=== PATIENT | male | born 1950 ===

== ENCOUNTER 2017-08-29 21:14 | Inpatient (IN) | payer OTHER ==
[~2017-08-29] VITALS: Ht 167.6 cm; Wt 65.3 kg
[2017-08-29] MEDS ORDERED: CLON0.5T4 PO (21:22)
[2017-08-29] MEDS ORDERED: HALO2TAB PO (21:22)
[2017-08-29] MEDS ORDERED: DIVA125T2 PO (21:22)
[2017-08-29] MEDS ORDERED: TRAZ-144 PO (21:22)
[2017-08-29 22:00] VITALS: BP 139/90
--- NOTE | 2017-08-29 22:04 | NUR ---
Pt. admitted to [facility]HU , under care of Dr. MEHTA Belongs List completed
[2017-08-29] MEDS ORDERED: MAG HYDROX/AL HYDROX/SIMETH 30 ML LIQUID UDC PO PRN (23:00)
[2017-08-29] MEDS ORDERED: MAGNESIUM HYDROXIDE 30 ML LIQUID UDC PO PRN (23:00)
[2017-08-29] MEDS: LORAZEPAM 0.5 MG TABLET PO PRN (23:23)
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
[2017-08-30 07:30] VITALS: BP 112/68
[2017-08-30] MEDS: LORAZEPAM 0.5 MG TABLET PO PRN (08:02)
[2017-08-30] MEDS: ACETAMINOPHEN 325 MG TABLET PO PRN ×3 (08:02→22:59)
[2017-08-30] MEDS: NICOTINE 14 MG/24HR PATCH TD SCH (08:02)
[2017-08-30] MEDS ORDERED: BENZTROPINE MESYLATE 1 MG TABLET PO PRN (10:00)
[2017-08-30] MEDS ORDERED: HALOPERIDOL 0.5 MG TABLET PO PRN (10:00)
[2017-08-30] MEDS ORDERED: DIVALPROEX 125 MG TABLET.DR PO SCH ×2 (10:00→21:00)
[2017-08-30] MEDS: CLONAZEPAM 0.5 MG TABLET PO SCH ×2 (10:43→16:49)
[2017-08-30] MEDS: HALOPERIDOL 2 MG TABLET PO SCH ×2 (10:43→16:49)
[2017-08-30] MEDS ORDERED: ALBUTEROL SULFATE 2.5 MG/ 0.5 ML NEBU NEB PRN (10:45)
[2017-08-30] MEDS ORDERED: HALOPERIDOL 2 MG TABLET PO PRN (10:45)
[2017-08-30] MEDS ORDERED: HALOPERIDOL LACTATE 10 MG/5 ML ORAL SOLUTION UDC PO PRN (10:45)
--- NOTE | 2017-08-30 14:03 | NUR ---
GPS: Nursing Notes: Destructive Behavior to Others: Patient is awake and responding to his name, episodes of pacing on the unit, gets easily irritable when redirected, suspicious, guarded, paranoid behavior, internally preoccupied, believes that he is here because of his family's fault, very demanding at times, loud and angry affect, believes that he is leaving today, unkempt appearance, unable to formulate a viable plan for self care, continue with treatment plan.
[2017-08-30 16:14] VITALS: BP 126/80
[2017-08-30] MEDS: BENZTROPINE MESYLATE 0.5 MG TABLET PO SCH (16:49)
[2017-08-30 19:53] VITALS: BP 112/75
[2017-08-30] MEDS: TEMAZEPAM 7.5 MG CAPSULE PO PRN (20:37)
[2017-08-30] MEDS ORDERED: DIVALPROEX 250 MG TABLET.DR PO SCH (21:00)
[2017-08-31] MEDS: LORAZEPAM 0.5 MG TABLET PO PRN ×4 (00:10→21:02)
[2017-08-31] MEDS: TEMAZEPAM 7.5 MG CAPSULE PO PRN ×2 (00:10→22:29)
[2017-08-31 07:30] VITALS: BP 112/78
[2017-08-31] MEDS: NICOTINE 14 MG/24HR PATCH TD SCH (08:14)
[2017-08-31] MEDS: BENZTROPINE MESYLATE 0.5 MG TABLET PO SCH ×2 (08:15→16:18)
[2017-08-31] MEDS: HALOPERIDOL 2 MG TABLET PO SCH (08:15)
[2017-08-31] MEDS: CLONAZEPAM 0.5 MG TABLET PO SCH ×2 (08:15→16:17)
[2017-08-31] MEDS: DIVALPROEX 250 MG TABLET.DR PO SCH ×2 (12:28→21:02)
[2017-08-31 15:56] VITALS: BP 104/65
[2017-08-31] MEDS: ACETAMINOPHEN 325 MG TABLET PO PRN (16:17)
[2017-08-31] MEDS: HALOPERIDOL 5 MG TABLET PO SCH (16:18)
[2017-08-31 20:28] VITALS: BP 101/59
--- NOTE | 2017-08-31 21:03 | NUR ---
INITIAL BP LOW, HS MEDS HELD UNTIL BP RE-CHECK, BP NOW ELEVATED ENOUGH TO ADMINISTER MEDICATIONS.
[2017-09-01] MEDS: LORAZEPAM 0.5 MG TABLET PO PRN ×3 (02:12→17:05)
[2017-09-01 05:50] LABS: *BILIRUBIN,URIN NEGATIVE (NEGATIVE); *BLOOD, URINE NEGATIVE (NEGATIVE); *CLARITY,URINE CLEAR (CLEAR); *COLOR,URINE LIGHT YELLOW (YELLOW); *KETONES,URINE NEGATIVE (NEGATIVE); *PROTEIN,URINE NEGATIVE (NEGATIVE); *UROBILINOGEN,URINE 0.2 E.U./dl (NORMAL); LEUKOCYTE ESTERASE ,URINE NEGATIVE (NEGATIVE); NITRITE, URINE NEGATIVE (NEGATIVE); PH,URINE 7.5 (5.0-8.0); UGLUCOSE NEGATIVE (NEGATIVE)
[2017-09-01 05:58] LABS: BACTERIA,URINE NONE SEEN /HPF (NONE SEEN); RBC,URINE NONE SEEN /HPF (0-3); SQUAMOUS EPITHELIAL CELL,UR FEW /HPF (NONE SEEN); WBC,URINE NONE SEEN /HPF (0-3)
[2017-09-01 07:21] LABS: POTASSIUM 4.4 mmol/L (3.5-5.1)
[2017-09-01 07:24] LABS: BASOPHILS % (AUTO) 0.9 % (0.0-2.0); EOSINOPHILS # (AUTO) 0.5 K/uL (0.0-0.7); EOSINOPHILS % (AUTO) 8.4 % (0.0-7.0); HEMATOCRIT 49.1 % (36.7-47.1); HEMOGLOBIN 16.4 g/dL (12.5-16.3); LYMPHOCYTES # (AUTO) 1.7 K/uL (20.0-40.0); LYMPHOCYTES % (AUTO) 29.4 % (20.5-51.5); MEAN CORPUSCULAR HEMOGLOBIN 31.6 uug (23.8-33.4); MEAN CORPUSCULAR HGB CONC 33 g/dL (32.5-36.3); MEAN CORPUSCULAR VOLUME 94.8 fL (73.0-96.2); MONOCYTES # (AUTO) 0.9 K/uL (2.0-10.0); MONOCYTES % (AUTO) 16.3 % (0.0-11.0); NEUTROPHILS # (AUTO) 2.5 K/uL (1.8-8.9); PLATELET COUNT (AUTO) 199 K/uL (152-348); RED BLOOD CELL COUNT(AUTO) 5.17 MIL/uL (4.06-5.63); WHITE BLOOD COUNT (AUTO) 5.7 K/uL (3.6-10.2)
[2017-09-01 07:30] VITALS: BP 100/72
[2017-09-01 07:32] LABS: NEUTROPHILS % (MANUAL) 0 % (42-75)
[2017-09-01] MEDS: NICOTINE 14 MG/24HR PATCH TD SCH (08:15)
[2017-09-01] MEDS: HALOPERIDOL 5 MG TABLET PO SCH ×3 (08:15→16:19)
[2017-09-01] MEDS: CLONAZEPAM 0.5 MG TABLET PO SCH ×2 (08:15→16:19)
[2017-09-01] MEDS: DIVALPROEX 250 MG TABLET.DR PO SCH ×3 (08:16→20:49)
[2017-09-01] MEDS: BENZTROPINE MESYLATE 0.5 MG TABLET PO SCH ×2 (08:16→16:20)
[2017-09-01] MEDS: ACETAMINOPHEN 325 MG TABLET PO PRN ×2 (08:33→22:10)
--- NOTE | 2017-09-01 12:18 | NUR ---
Initial DC Plan: Patient currently lives at home with his mother [[place] [address]; [phone]]. LLOYD spoke with patient's brother Sanju [[phone]] who stated he will bring patient home upon discharge. LLOYD will follow up with MD, patient, and patient's family to discuss most appropriate discharge plans. SW will form a safe and proper discharge.
--- NOTE | 2017-09-01 13:09 | NUR ---
Firearms Reporting: LLOYD submitted Mental Health Report to [employer] on 09/01.
[2017-09-01 15:18] VITALS: BP 112/83
[2017-09-01 20:28] VITALS: BP 103/64
--- NOTE | 2017-09-01 20:45 | NUR ---
RECEIVED PATIENT IN HIS ROOM IN BED. HE WAS NOTED A/O X 2 (PERSON AND PLACE). ABLE TO WALK WITH STEADY GAIT. AND ABLE TO MAKE HIS NEEDS KNOW. ABLE TO COMPLY WITH [facility] MEDICATION REGIMENT. PT NOTED FORGETFUL, DISORGANIZED, DELUSIONAL, SEXUALLY PREOCCUPIED, HE STATED TO THE NURSES. 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 POOR INSIGHT, POOR JUDGEMENT. DENIES SI/HI. NO AGGRESSIVE BX NOTED AT THIS TIME. SAFETY EMPHASIS. PT WAS ASKED TO USED HIS FWW FOR AMBULATION. WILL CONTINUE TO MONITOR.
--- NOTE | 2017-09-01 21:38 | NUR ---
PT NOTED PACING THE HALLWAY, VERBAL REDIRECTION GIVEN. AND SLEEPING PILL WAS OFFERED, HOWEVER, HE REFUSED AT THIS TIME. WILL CONTINUE TO MONITOR.
[2017-09-01] MEDS: TEMAZEPAM 7.5 MG CAPSULE PO PRN (22:21)
[2017-09-02] MEDS: LORAZEPAM 0.5 MG TABLET PO PRN (03:19)
[2017-09-02] MEDS: ACETAMINOPHEN 325 MG TABLET PO PRN (06:44)
--- NOTE | 2017-09-02 06:48 | NUR ---
PT SLEPT FOR APPROX 5.30 HRS THROUGH THE NIGHT. REQUESTED A SHOWER. HE ALSO REPORTED MODERATE NECK PAIN. TYLENOL 650MG PO PRN WAS GIVEN. WILL CONTINUE TO MONITOR.
[2017-09-02 08:00] VITALS: BP 132/84
[2017-09-02] MEDS: CLONAZEPAM 0.5 MG TABLET PO SCH ×2 (08:07→16:03)
[2017-09-02] MEDS: BENZTROPINE MESYLATE 0.5 MG TABLET PO SCH ×2 (08:07→16:03)
[2017-09-02] MEDS: HALOPERIDOL 5 MG TABLET PO SCH ×3 (08:07→20:40)
[2017-09-02] MEDS: NICOTINE 14 MG/24HR PATCH TD SCH (08:07)
[2017-09-02] MEDS: DIVALPROEX 250 MG TABLET.DR PO SCH ×2 (08:07→12:04)
--- NOTE | 2017-09-02 09:54 | NUR ---
UR Note: SWS provided patient clinicals over the phone. AUTH# [id number] obtained from Sabrina Iyer [[phone] FAX [phone]]. Review due 09/04/17. SW will follow up with CM.
[2017-09-02 16:00] VITALS: BP 121/69
--- NOTE | 2017-09-02 19:45 | NUR ---
PATIENT IN HIS ROOM CALM, COOPERATIVE WITH CARE, CONT TO MONITOR.
[2017-09-02 20:00] VITALS: BP 106/75
[2017-09-02] MEDS: DIVALPROEX 500 MG TABLET.DR PO SCH (20:40)
[2017-09-02] MEDS: TEMAZEPAM 7.5 MG CAPSULE PO PRN (22:28)
--- NOTE | 2017-09-02 22:28 | NUR ---
PATIENT COMPLAIN OF INSOMNIA, GIVEN RESTORIL ORDERED. CONT TO MONITOR.
[2017-09-03] MEDS: LORAZEPAM 0.5 MG TABLET PO PRN ×2 (03:33→22:11)
--- NOTE | 2017-09-03 03:42 | NUR ---
PATIENT PACING, AND HAVING ANXIETY, WANTED MEDICATION, GIVEN ATIVAN ORDERED, PATIENT HAD BM, MOM EFFECTIVE. CONT TO MONITOR.
--- NOTE | 2017-09-03 04:56 | NUR ---
PATIENT SLEPT FOR 5 HOURS, RESTORIL HAS NO ADVERSE REACTION NOTED, AWAKE IN HIS ROOM, CONT TO MONITOR.
[2017-09-03 07:30] VITALS: BP 120/83
[2017-09-03] MEDS: CLONAZEPAM 0.5 MG TABLET PO SCH ×2 (08:49→16:16)
[2017-09-03] MEDS: NICOTINE 14 MG/24HR PATCH TD SCH (08:49)
[2017-09-03] MEDS: DIVALPROEX 250 MG TABLET.DR PO SCH ×2 (08:49→13:17)
[2017-09-03] MEDS: HALOPERIDOL 5 MG TABLET PO SCH ×3 (08:49→20:21)
[2017-09-03] MEDS: BENZTROPINE MESYLATE 0.5 MG TABLET PO SCH ×2 (08:49→16:16)
[2017-09-03] MEDS: ACETAMINOPHEN 325 MG TABLET PO PRN (08:55)
--- NOTE | 2017-09-03 10:39 | NUR ---
Received patient in dayroom spent time watching tv, paces hallways, ate 100% breakfast, pleasant on approach, interacts with selected peers and staff. Medication compliant and cooperative, c/o neck pain at 8/10, tylenol 650mg PO was given at 0855. Will continue to monitor for safety and needs.
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
[2017-09-03 16:28] VITALS: BP 100/74
[2017-09-03 20:06] VITALS: BP 115/73
[2017-09-03] MEDS: DIVALPROEX 500 MG TABLET.DR PO SCH (20:21)
--- NOTE | 2017-09-03 22:00 | NUR ---
received to care, pacing about the unit, anxious, but pleasant upon approach. compliant with medications and staff direction. as of 2199, he remains awake, in his room. remaind anxious. will continue to monitor closely.
--- NOTE | 2017-09-03 22:11 | NUR ---
REMAINS AGITATED. ACCUSED STAFF OF STEALING HIS "BIBLE" DIFFICULT TO REDIRECT. PRN ATIVAN WAS GIVEN AT THIS TIME.
--- NOTE | 2017-09-03 23:07 | NUR ---
remains agitated, but appears calmer, now. PRN haldol was given at this time. will continue to monitor closely.
[2017-09-04] MEDS: TEMAZEPAM 7.5 MG CAPSULE PO PRN ×2 (00:09→22:49)
--- NOTE | 2017-09-04 00:09 | NUR ---
appears calm, now. PRN restoril, given at his request, for insomnia. will continue to monitor closely.
--- NOTE | 2017-09-04 00:30 | NUR ---
appears to be asleep. no distress noted.
--- NOTE | 2017-09-04 06:42 | NUR ---
PATIENT SLEPT FOR 5;30 AFTER HIS MEDS HAD BEEN GIVEN.UP THIS MORNING AND HELPED WITH GROOMING.
[2017-09-04 07:30] VITALS: BP 99/71
[2017-09-04] MEDS: CLONAZEPAM 0.5 MG TABLET PO SCH ×2 (08:09→17:16)
[2017-09-04] MEDS: DIVALPROEX 250 MG TABLET.DR PO SCH ×2 (08:09→12:41)
[2017-09-04] MEDS: BENZTROPINE MESYLATE 0.5 MG TABLET PO SCH ×2 (08:09→17:16)
[2017-09-04] MEDS: HALOPERIDOL 5 MG TABLET PO SCH ×3 (08:09→21:45)
[2017-09-04] MEDS: NICOTINE 14 MG/24HR PATCH TD SCH (08:15)
[2017-09-04] MEDS: ACETAMINOPHEN 325 MG TABLET PO PRN ×2 (09:34→18:14)
--- NOTE | 2017-09-04 10:00 | NUR ---
Gps/Fundraising Director- Attends and participates in his group therapy, complaining of joint pain r/t to arthritis per patient, ambulates around with front wheel walker ,interacting with his selected peers.
[2017-09-04 19:57] VITALS: BP 94/51
[2017-09-04] MEDS: LORAZEPAM 0.5 MG TABLET PO PRN (20:20)
[2017-09-04] MEDS: DIVALPROEX 500 MG TABLET.DR PO SCH (21:45)
--- NOTE | 2017-09-04 22:00 | NUR ---
received to care, highly visible on unit, compliant with medications, pleasant upon approach. appeared slightly anxious, so he was given PRN ativan, at 2019. as of 2199, he remains awake, but much calmer. currently in bed. no distress noted. will continue to monitor closely.
--- NOTE | 2017-09-04 22:49 | NUR ---
remains awake, in bed. PRN restoril was given at this time, at his request. no distress noted. will continue to monitor closely.
--- NOTE | 2017-09-04 23:30 | NUR ---
appears to be asleep. no distress noted.
[2017-09-05] MEDS: ACETAMINOPHEN 325 MG TABLET PO PRN ×2 (04:57→16:31)
[2017-09-05 07:17] LABS: BASOPHILS % (AUTO) 0.8 % (0.0-2.0); EOSINOPHILS # (AUTO) 0.4 K/uL (0.0-0.7); EOSINOPHILS % (AUTO) 7.7 % (0.0-7.0); HEMATOCRIT 44.3 % (36.7-47.1); HEMOGLOBIN 14.9 g/dL (12.5-16.3); LYMPHOCYTES # (AUTO) 1.5 K/uL (20.0-40.0); LYMPHOCYTES % (AUTO) 32.7 % (20.5-51.5); MEAN CORPUSCULAR HEMOGLOBIN 31.9 uug (23.8-33.4); MEAN CORPUSCULAR HGB CONC 34 g/dL (32.5-36.3); MEAN CORPUSCULAR VOLUME 95.3 fL (73.0-96.2); MONOCYTES # (AUTO) 0.8 K/uL (2.0-10.0); NEUTROPHILS # (AUTO) 1.9 K/uL (1.8-8.9); NEUTROPHILS % (AUTO) 41.8 % (38.5-71.5); PLATELET COUNT (AUTO) 177 K/uL (152-348); RED BLOOD CELL COUNT(AUTO) 4.65 MIL/uL (4.06-5.63); WHITE BLOOD COUNT (AUTO) 4.6 K/uL (3.6-10.2)
[2017-09-05 07:31] LABS: BILIRUBIN,TOTAL 0.6 mg/dL (0.2-1.0); MAGNESIUM 1.9 mg/dL (1.8-2.4); PHOSPHOROUS 3.6 mg/dL (2.5-4.9); POTASSIUM 4.7 mmol/L (3.5-5.1)
[2017-09-05 07:42] VITALS: BP 106/71
[2017-09-05] MEDS: CLONAZEPAM 0.5 MG TABLET PO SCH ×2 (08:51→16:32)
[2017-09-05] MEDS: HALOPERIDOL 5 MG TABLET PO SCH ×3 (08:51→20:26)
[2017-09-05] MEDS: NICOTINE 14 MG/24HR PATCH TD SCH (08:51)
[2017-09-05] MEDS: BENZTROPINE MESYLATE 0.5 MG TABLET PO SCH ×2 (08:51→16:32)
[2017-09-05] MEDS: DIVALPROEX 250 MG TABLET.DR PO SCH ×2 (08:51→13:21)
[2017-09-05 08:59] LABS: BAND % (MANUAL) 2 % (0-10); EOSINOPHILS % (MANUAL) 8 % (0-8); LYMPHOCYTES % (MANUAL) 34 % (20-40); MONOCYTES % (MANUAL) 15 % (2-10); NEUTROPHILS % (MANUAL) 41 % (42-75)
[2017-09-05] MEDS ORDERED: HALOPERIDOL DECANOATE 50 MG/1 ML AMPUL IM ONE (12:15)
[2017-09-05 16:18] VITALS: BP 113/73
[2017-09-05 19:43] VITALS: BP 105/73
[2017-09-05] MEDS: DIVALPROEX 500 MG TABLET.DR PO SCH (20:27)
--- NOTE | 2017-09-05 20:30 | NUR ---
RECEIVED PATIENT IN THE HALLWAY, HE WAS NOTED A/O X 2. ABLE TO AMBULATE WITH STEADY GAIT AND ABLE TO MAKE HIS NEEDS KNOWN. HE REMAINS MEDICATION COMPLIANT AT THIS TIME. PT NOTED NEEDY, ANXIOUS MOOD, BLUNTED AFFECTED, FAIR INSIGHT AND POOR JUDGMENT. NO AGGRESSIVE/COMBATIVE BX NOTED AT THIS TIME, DENIES SI/HI. NO A/H OR V/A NOTED AT THIS TIME. SAFETY EMPHASIS. WILL CONTINUE TO MONITOR CLOSELY.
[2017-09-06] MEDS: ACETAMINOPHEN 325 MG TABLET PO PRN ×2 (00:25→13:01)
--- NOTE | 2017-09-06 00:35 | NUR ---
PATIENT REQUESTED TYLENOL 650MG PO PRN FOR NECK PAIN 5/10 IN THE PAIN INTENSITY SCALE. WILL CONTINUE TO MONITOR.
--- NOTE | 2017-09-06 07:21 | NUR ---
PATIENT SLEPT FOR APPROX 8.30HRS THROUGH THE NIGHT. DENIES PAIN OR DISCOMFORT. WILL CONTINUE TO MONITOR.
[2017-09-06 07:30] VITALS: BP 110/65
[2017-09-06] MEDS: HALOPERIDOL 5 MG TABLET PO SCH ×3 (08:22→20:08)
[2017-09-06] MEDS: BENZTROPINE MESYLATE 0.5 MG TABLET PO SCH ×2 (08:22→17:02)
[2017-09-06] MEDS: CLONAZEPAM 0.5 MG TABLET PO SCH ×2 (08:22→17:02)
[2017-09-06] MEDS: NICOTINE 14 MG/24HR PATCH TD SCH (08:22)
[2017-09-06] MEDS: DIVALPROEX 250 MG TABLET.DR PO SCH ×2 (08:25→12:29)
--- NOTE | 2017-09-06 08:54 | NUR ---
Gps/Hand Wrapper Operator- Stayed in the activity room during breakfast ,interacting with his selective peers. Showered self after breakfast , but still wants to wear old clothes . Compliant with his routine meds.
[2017-09-06 15:10] VITALS: BP 101/53
[2017-09-06 19:53] VITALS: BP 105/59
[2017-09-06] MEDS: DIVALPROEX 500 MG TABLET.DR PO SCH (20:08)
--- NOTE | 2017-09-06 20:14 | NUR ---
PT IS VISIBLE ON THE UNIT, ABLE TO MAKE NEEDS KNOWN. POOR IMPULSE CONTROL, HALDOL HELD DUE TO LOW BLOOD PRESSURE. PT IS LABILE AND UNPREDICTABLE, BUT REDIRECTABLE. WILL CONTINUE TO MONITOR CLOSELY.
[2017-09-07] MEDS: ACETAMINOPHEN 325 MG TABLET PO PRN (02:14)
[2017-09-07 07:30] VITALS: BP 116/71
[2017-09-07] MEDS: HALOPERIDOL 5 MG TABLET PO SCH ×2 (08:05→12:31)
[2017-09-07] MEDS: DIVALPROEX 250 MG TABLET.DR PO SCH ×2 (08:05→12:31)
[2017-09-07] MEDS: BENZTROPINE MESYLATE 0.5 MG TABLET PO SCH ×2 (08:05→16:48)
[2017-09-07] MEDS: CLONAZEPAM 0.5 MG TABLET PO SCH (08:05)
[2017-09-07] MEDS: NICOTINE 14 MG/24HR PATCH TD SCH (08:06)
[2017-09-07 15:26] VITALS: BP 110/72
--- NOTE | 2017-09-07 15:43 | NUR ---
Gps/Horse Rancher- Attends and participates in his group therapy, interacting w/ his selected peers. Dr Reina was in to see patient, this am, dc.planning possible in am. patient was well informed.
[2017-09-07] MEDS ORDERED: HALOPERIDOL DECANOATE 50 MG/1 ML AMPUL IM ONE (19:45)
[2017-09-07 19:54] VITALS: BP 114/66
[2017-09-07] MEDS ORDERED: DIVALPROEX 500 MG TABLET.DR PO SCH (21:00)
[2017-09-07] MEDS ORDERED: HALOPERIDOL 5 MG TABLET PO SCH (21:00)
--- NOTE | 2017-09-08 06:38 | NUR ---
GPS: Remain calm and cooperative with medications and care. slept 9 hrs through the night.no agitation noted at this time. continue plan of care.
[2017-09-08 07:30] VITALS: BP 96/68
[2017-09-08] MEDS ORDERED: HALOPERIDOL DECANOATE 50 MG/1 ML AMPUL IM ONE (09:00)
[2017-09-08] MEDS: DIVALPROEX 250 MG TABLET.DR PO SCH ×2 (09:50→13:00)
[2017-09-08] MEDS: BENZTROPINE MESYLATE 0.5 MG TABLET PO SCH (09:51)
[2017-09-08] MEDS: HALOPERIDOL 5 MG TABLET PO SCH ×2 (09:51→13:00)
[2017-09-08] MEDS: NICOTINE 14 MG/24HR PATCH TD SCH (09:56)
--- NOTE | 2017-09-08 10:54 | NUR ---
Discharge Note: Patient will be discharged back home with his brother [Haroldo Nevarez, [place] [address]; [phone]] via transportation at 1pm. Spoke with patients brother, Sanju ([phone]) who is willing to provide transportation and is aware and agreeable with discharge plans. Patient is aware and agreeable with discharge plans. Patient will follow-up with his Primary Care Physician, Dr. Kena Willis [[id number], [place] [address]; ]. Patient will also follow-up with his Psychiatrist, Dr. Collin Dash [[address], [address] [place] [address]; [phone]] and has an appointment scheduled for Sunday, September 17, 2017 at 2:20 pm. Patient also has an appointment scheduled with Cristin Klein LCSW on Friday, September 15, 2017 at 3:15 pm [[address], [address] [place] [address]; [phone]]. For smoking cessation, patient was referred to [employer] 800-LUNGUSA and [employer] [phone]. Patient was also encouraged to participate in a Telephone Meeting for Nicotine Anonymous on Saturday, September 09, 2017 at 6:15 pm ([phone]; PIN [id number]).
--- NOTE | 2017-09-08 13:00 | NUR ---
GPS: Nursing Notes: Discharge Notes: Patient is awake and responding to his name, cooperative with nursing care, compliant with his medications, following staff directions, denies any SI/HI, denies any AH/VH, denies any pain or discomfort, denies any SOB at this time, discharge home with his brother Sanju at [address] [facility], [place] [address] , prescription and instructions given to his brother Sanju, transported home via private vehicle. Patient will follow-up with his Primary Care Physician, Dr. Kena Willis [[id number], [place] [address]; ]. Patient will also follow-up with his Psychiatrist, Dr. Collin Dash [[address], [address] [place] [address]; [phone]] and has an appointment scheduled for Sunday, September 17, 2017 at 2:20 pm. Patient also has an appointment scheduled with Cristin Klein LCSW on Friday, September 15, 2017 at 3:15 pm [[address], [address] [place] [address]; [phone]]. For smoking cessation, patient was referred to [employer] [facility]LUN[facility] and [employer] [phone]. Patient was also encouraged to participate in a Telephone Meeting for Nicotine Anonymous on Saturday, September 09, 2017 at 6:15 pm ([phone]; PIN [id number]).
--- NOTE | 2017-09-08 13:00 | NUR ---
PT'S BROTHER HERE TO WAITER/WAITRESS PT. ALL HOME MEDS REVIEWED WITH BROTHER. VALUABLES RETURNED TO PT. DISCHARGED TO BROTHER VIA W/C TO PRIVATE AUTO.
[2017-09-08] MEDS ORDERED: HALOPERIDOL 5 MG TABLET PO SCH (21:00)
== END 2017-09-08 13:00 | disposition home or self-care (01) | DRG 885 ==
LOC: ER 21:14 → GPS 21:54
PROVIDERS: ADMIT Psychiatry & Neurology Psychosomatic Medicine; ATTEND Hospitalist
PROC: 0HBRXZZ Excision of Toe Nail, External Approach (ICD-10-PCS; principal; 2017-09-01)
DX: F25.0 Schizoaffective disorder, bipolar type (principal); B35.1 Tinea unguium; B35.3 Tinea pedis; F17.210 Nicotine dependence, cigarettes, uncomplicated; I44.4 Left anterior fascicular block; I45.2 Bifascicular block; I45.10 Unspecified right bundle-branch block; J45.909 Unspecified asthma, uncomplicated; M20.40 Other hammer toe(s) (acquired), unspecified foot; L84 Corns and callosities; M21.619 Bunion of unspecified foot; Z79.899 Other long term (current) drug therapy
CPT/HCPCS: 36415; 80164; 83735; 84100; 84443; 85025; 87086; 93005; 93307; A4663; J1631; J3490